=== PATIENT | female | born 1960 | race Caucasian/White ===

== ENCOUNTER → 2016-09-02 | Outpatient (CLI) | payer BC ==
--- NOTE | 2016-09-06 07:49 | EKG ---
[facility] [address] [place] [address] Test Date: 2016-09-06 Test Time: 05:47:56 Pat Name: ANTONIO THAYER Department: Room: Gender: F Make Ready Worker: : 1960 Requested By: ANTONIO GUY Order Number: [id number] Reading MD: Interpretive Statements
== END | disposition home or self-care (01) ==
LOC: EKG 08:59
PROVIDERS: ATTEND Internal Medicine Cardiovascular Disease
DX: R00.2 Palpitations (principal); R60.9 Edema, unspecified; R00.0 Tachycardia, unspecified
CPT/HCPCS: 93225

== ENCOUNTER → 2016-10-07 | Outpatient (CLI) | payer BC ==
--- NOTE | 2016-10-14 09:05 | EKG ---
[facility] [address] [place] [address] Test Date: 2016-10-14 Test Time: 06:58:43 Pat Name: ANTONIO THAYER Department: Room: Gender: F Patent Law Specialist: : 1960 Requested By: ANTONIO GUY Order Number: [id number] Reading MD: Interpretive Statements
== END | disposition home or self-care (01) ==
LOC: EKG 09:23
PROVIDERS: ATTEND Internal Medicine Cardiovascular Disease
DX: R00.2 Palpitations (principal); R00.0 Tachycardia, unspecified
CPT/HCPCS: 93225